=== PATIENT | female | born 1965 | race African-American/Black ===

== ENCOUNTER → 2019-05-09 13:17 | Outpatient (CLI) | payer BC ==
--- NOTE | 2019-05-11 16:51 | EC ---
PATIENT:BRYNN AJ DATE OF SERVICE: 05/09/19 SEX: F MEDICAL RECORD: [id number] DATE OF : 65 LOCATION:D.[facility]ERLY [facility] AGE OF PATIENT: 53 ADMISSION DATE: 05/09/19 REFERRING PHYSICIAN: INTERPRETING PHYSICIAN: JANA ROA MD ECHOCARDIOGRAM REPORT ECHO CHARGES 4 ECHO COMPLETE Date: 05/09/19 CLINICAL DIAGNOSIS: HTN/ABN EKG ECHOCARDIOGRAPHIC MEASUREMENTS (adult normal given) AC root (d.<3.7cm) 3.2 cm LV Septum d (<1.2 cm> 1.4 cm Valve Excursion 1.8 cm LV Septum (systole) 2.0 cm Left Atria (s.<4.0cm> 3.5 cm LVPW d(<1.2cm) 1.4 cm RV (d.<2.3cm) 3.2 cm LVPW (sytole) 1.9 cm LV diastole(<5.6CM) 4.1 cm MV E-F(>70mm/sec) cm LV systole 2.1 cm LVOT Diameter 2.1 cm MV exc.(>10mm) 1.5 cm Est.ejection fraction (50-75%) % DOPPLER: LVIT cm/sec A 84.0 cm/sec E 65.0 cm/sec LA cm/sec RVSP 16 mmHg LVOT 107 cm/sec AOP1/2T m/s Asc. Ao 141 cm/sec RVOT 87 cm/sec RA cm/sec PA 120 cm/sec AV Gradient Peak 7.97 mmHg AV Mean 4.57 mmHg AV Area 2.8 cm MV Gradient Peak 4.25 mmHg MV Mean 1.80 mmHg MV Area cm COMMENTS: Drug Safety Data Management Specialist: 2 TIFFANIE CONNELLY Pediatric Ophthalmologist: 1 Dr. Roa TAPE# PACS Pericardial Effusion N DATE OF SERVICE: FINDINGS: 1. Left ventricular chamber size is within normal limits. Left ventricular systolic function is normal. Overall ejection fraction estimated at 65%. 2. Left atrium, right atrium, and right ventricular chamber sizes are within normal limits. 3. Valvular structures have normal structure and motion. 4. Doppler interrogation reveals no significant valvular insufficiency or stenosis. Pulmonary systolic pressure is estimated 60 mmHg. ECHOCARDIOGRAM REPORT [id number] BRYNN AJ 5. No evidence of pericardial effusion or left ventricular thrombus. TRANSINT:[id number] Voice Confirmation ID: [id number] DOCUMENT ID: [id number] JANA ROA MD at 1651 CC: [id number] DICTATION DATE: 05/09/19 160 PROP AND SCENERY MAKER: 05/09/19 1845 DEP CLI 05/09/19 [place] [id number] [place] [id number]
== END | disposition home or self-care (01) ==
LOC: D.HCCARDIO 13:17
PROVIDERS: ATTEND Internal Medicine Interventional Cardiology
DX: I10 Essential (primary) hypertension (principal); R93.89 Abnormal findings on diagnostic imaging of other specified body structures